=== PATIENT | male | born 1975 | race African-American/Black ===

== ENCOUNTER 2017-01-31 14:50 | Emergency (ER) | payer OTHER ==
[2017-01-31] MEDS ORDERED: Sodium Chloride 0.9% 10 ML Syringe FLUSH PRN (15:24)
--- NOTE | 2017-01-31 15:26 | EDM.PDOC ---
ED HPI GENERAL MEDICAL PROBLEM - General Chief Complaint: Cardiovascular Problem Stated Complaint: HIGH BLOOD PRESSURE Time Seen by Provider: 01/31/17 15:00 Source of Information: Reports: Patient, RN Notes Reviewed - History of Present Illness INITIAL COMMENTS - FREE TEXT/NARRATIVE: 41-year-old male who has been referred here from one of the local clinics for evaluation of hypertension and intermittent left-sided chest pain for about the past 10-14 days. Discomfort has been positional mainly when he has his left arm lifted to the steering well driving. 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 He also has been lifting weights occasionally. there has not been any fall or other injury that he can think of although he does have to drag hose around as well with his work. He states he is had borderline hypertension the past, he was on medication about 6 years ago. apparently was not on medication very long, he states he went on a diet and his blood pressure came down. He has no known history of coronary artery disease. He does not smoke. 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 Denies: Dyspnea on Exertion, Lightheadedness Endocrine: Denies: Fatigue GI/Abdominal: Denies: Abdominal Pain, Nausea, Vomiting Musculoskeletal: Denies: Neck Pain, Shoulder Pain, Arm Pain, Back Pain Skin: Reports: No Symptoms Neurological: Denies: Dizziness, Numbness, Tingling, Weakness ED EXAM, GENERAL - Physical Exam Exam: See Below General Appearance: Alert, No Apparent Distress Eye Exam: Bilateral Eye: PERRL Throat/Mouth: Normal Inspection, Normal Oropharynx Head: Atraumatic. No: Facial Swelling Neck: Supple, Full Range of Motion. No: Lymphadenopathy (L), Lymphadenopathy (R ) Respiratory/Chest: No Respiratory Distress, Lungs Clear, Normal Breath Sounds, Chest Non-Tender Cardiovascular: Normal Peripheral Pulses, Regular Rate, Rhythm GI/Abdominal: Soft, Non-Tender Back Exam: No: CVA Tenderness (L), CVA Tenderness (R) Extremities: Normal Inspection. No: Pedal Edema, Leg Pain Neurological: Alert, Oriented, No Motor/Sensory Deficits Skin Exam: Warm, Dry, Normal Color EKG INTERPRETATION EKG Date: 01/31/17 Rhythm: NSR [place]: Normal P-Wave: Present QRS: Normal ST-T: Other (T-wave inversion in lead 3) Course - Vital Signs Last Recorded V/S: Last Vital Signs Temp 97.6 F 01/31/17 14:56 Pulse 69 01/31/17 18:28 Resp 16 01/31/17 14:56 BP 153/103 H 01/31/17 18:28 Pulse Ox 99 01/31/17 14:56 - Orders/Labs/Meds Orders: Active Orders 24 hr Category Date Time Status EKG 12 Lead [EKG Documentation Completion] [RC] STAT Care 01/31/17 15:10 Active Peripheral IV Care [RC] . DIRECTED Care 01/31/17 15:25 Active Peripheral IV Insertion Adult [OM.PC] Stat Oth 01/31/17 15:25 Ordered Labs: Laboratory Tests 01/31/17 01/31/17 01/31/17 Range/Units 15:00 15:00 15:00 WBC 6.19 (4.23-9.07) K/mm3 RBC 5.65 (4.63-6.08) M/mm3 Hgb 15.0 (13.7-17.5) gm/L Hct 44.7 (40.1-51.0) % MCV 79.1 (79.0-92.2) fl MCH 26.5 (25.7-32.2) pg MCHC 33.6 (32.2-35.5) g/dl RDW Std Deviation 42.4 (35.1-43.9) fL Plt Count 190 (163-337) K/mm3 MPV 12.6 H (9.4-12.3) fl Neut % (Auto) 52.4 (34.0-67.9) % Lymph % (Auto) 34.2 (21.8-53.1) % [place] % (Auto) 8.2 (5.3-12.2) % Eos % (Auto) 4.8 (0.8-7.0) Baso % (Auto) 0.2 (0.1-1.2) % Neut # (Auto) 3.24 (1.78-5.38) K/mm3 Lymph # (Auto) 2.12 (1.32-3.57) K/mm3 [place] # (Auto) 0.51 (0.30-0.82) K/mm3 Eos # (Auto) 0.30 (0.04-0.54) K/mm3 Baso # (Auto) 0.01 (0.01-0.08) K/mm3 Sodium 141 (136-145) mEq/L Potassium 3.5 (3.5-5.1) mEq/L Chloride 103 (98-107) mEq/L Carbon Dioxide 29 (21-32) mEq/L Anion Gap 12.5 (5-15) BUN 16 (7-18) mg/dL Creatinine 1.3 (0.7-1.3) mg/dL Est Cr Clr Drug Dosing 81.25 mL/min Estimated GFR (MDRD) > 60 (>60) mL/min BUN/Creatinine Ratio 12.3 L (14-18) Glucose 111 H (74-106) mg/dL Calcium 8.8 (8.5-10.1) mg/dL Total Bilirubin 0.4 (0.2-1.0) mg/dL AST 26 (15-37) U/L ALT 34 (16-63) U/L Alkaline Phosphatase 62 (46-116) U/L Troponin I < 0.017 (0.00-0.056) ng/mL Total Protein 8.1 (6.4-8.2) g/dl Albumin 4.0 (3.4-5.0) g/dl Globulin 4.1 gm/dL Albumin/Globulin Ratio 1.0 (1-2) Meds: Medications Discontinued Medications Generic Name Dose Route Start Last Admin Trade Name Ari PRN Reason Stop Dose Admin Labetalol HCl 20 mg 01/31/17 15:36 01/31/17 15:44 Normodyne IVPUSH 01/31/17 15:37 20 mg ONETIME ONE Administration Protocol Labetalol HCl 20 mg 01/31/17 18:26 01/31/17 18:28 Normodyne IVPUSH 01/31/17 18:27 20 mg ONETIME ONE Administration Protocol Sodium Chloride 10 ml 01/31/17 15:24 01/31/17 15:44 Saline Flush FLUSH 10 ml ASDIRECTED PRN Administration Keep Vein Open - Re-Assessments/Exams Free Text/Narrative Re-Assessment/Exam: 01/31/17 20:20 we did give labetalol 20 mg IV initially and then did follow up with the second dose. With that blood pressures did improve though far from what would be considered optimal. See flow sheet for exact readings. They've been running primarily in the 150-160 systolic range and in the 100-112 diastolic improved from arrival. Because of persistent hypertension while here in the ED and consideration that he is probably been hypertensive for quite a long while I am going to start him on lisinopril 10 mg daily. Patient is comfortable with that. Labs did all come back relatively normal, troponin negative. Discharge instructions as documented Departure - Departure Time of Disposition: 18:32 Disposition: Home, Self-Care 01 Condition: Fair Clinical Impression: Atypical chest pain Hypertension Qualifiers: Hypertension type: essential hypertension Qualified Code(s): I10 - Essential ( primary) hypertension Prescriptions: Lisinopril 10 mg PO DAILY #30 tablet Instructions: Hypertension Referrals: Yoselin Frankel, [Primary Care Provider] - Forms: ED Department Discharge Additional Instructions: low-salt healthy diet, drink plenty of water to maintain hydration, try avoid any excessive heavy lifting for now, Tylenol 2-3 times daily if needed for chest wall discomfort, lisinopril 10 mg daily. I do recommend getting a blood pressure cuff and checking your blood pressure at least once or twice daily, maintain a log of these daily blood pressures and bring that to Dr. Yoselin Frankel for your next clinic visit. Plan to see Dr. Frankel in about 7-10 days for follow-up. Return to ED if symptoms worsening in any way. - My Orders Last 24 Hours: My Active Orders 01/31/17 15:10 EKG 12 Lead [EKG Documentation Completion] [RC] STAT 01/31/17 15:25 Peripheral IV Care [RC] . DIRECTED Peripheral IV Insertion Adult [OM.PC] Stat - Assessment/Plan Last 24 Hours: My Active Orders 01/31/17 15:10 EKG 12 Lead [EKG Documentation Completion] [RC] STAT 01/31/17 15:25 Peripheral IV Care [RC] . DIRECTED Peripheral IV Insertion Adult [OM.PC] Stat
[2017-01-31] MEDS ORDERED: Labetalol 100 MG/20 ML MDV IVPUSH ONE ×2 (15:36→18:26)
[2017-01-31 18:30] VITALS: BP 153/103
== END 2017-01-31 18:57 | disposition home or self-care (01) ==
LOC: JD.ED 14:50
DX: R07.89 Other chest pain (principal); I10 Essential (primary) hypertension; Z79.899 Other long term (current) drug therapy; Z98.890 Other specified postprocedural states
CPT/HCPCS: 36415; 80053; 84484; 85025; 93005; 96374; 96376; 99284; J7050